=== PATIENT | male | born 1995 | race Hispanic/Latino ===

== ENCOUNTER 2017-10-23 15:38 | Emergency (ER) | payer OTHER ==
[~2017-10-23] VITALS: Ht 172.7 cm; Wt 67.1 kg
[2017-10-23] MEDS ORDERED: ACAMPROSATE CA333 MG PO (16:49)
[2017-10-23] MEDS ORDERED: BUPROPION XL150 MG PO (16:49)
[2017-10-23] MEDS ORDERED: GLIPIZIDE XL10 MG PO (16:50)
[2017-10-23] MEDS ORDERED: METFORMIN HCL1000 MG PO (16:51)
[2017-10-23] MEDS ORDERED: LOPERAMIDE2 M1 PO (16:51)
[2017-10-23 17:17] LABS: HEMATOCRIT 45.5 % (38.0-50.0); HEMOGLOBIN 16.3 G/DL (12.5-16.6); MCH 30.5 PG (29.0-34.0); MCHC 35.8 G/DL (30.0-36.0); PLATELET COUNT 283 K/uL (156-360); RBC DIS.WIDTH-CV 12.1 % (11.8-14.6); RBC DIS.WIDTH-SD 37.5 % (39-53); RED BLOOD COUNT 5.35 M/uL (4.00-5.50); WHITE BLOOD COUNT 13.1 K/uL (4.1-10.2)
[2017-10-23 17:21] LABS: CARBON DIOXIDE (BICARBONATE) 26.8 MEQ/L (20-31)
[2017-10-23 17:33] LABS: ALBUMIN 4.9 g/dL (3.2-4.8); CHLORIDE 98 mEq/L (99-109); POTASSIUM 4.3 mEq/L (3.7-5.4); SODIUM 136 mEq/L (136-147)
[2017-10-23 17:34] LABS: MAGNESIUM 2.1 mg/dL (1.3-2.7)
[2017-10-23 17:36] LABS: GLUCOSE 232 mg/dL (70-99); TOTAL PROTEIN 8.1 g/dL (6.4-8.3)
[2017-10-23 17:37] LABS: TOTAL BILIRUBIN 1.2 mg/dL (0.0-1.0)
[2017-10-23 17:38] LABS: SERUM ETHYL ALCOHOL < 10 mg/dL
[2017-10-23 17:39] LABS: ALKALINE PHOSPHATASE 112 IU/L (3-129); CREATININE 0.8 mg/dL (0.6-1.3); GFR ESTIMATE (CALCULATED) > 59 mL/min/ (58.99-99999); PHOSPHORUS 3.5 mg/dL (2.5-4.9)
[2017-10-23 17:40] LABS: UREA NITROGEN (BUN) 14 mg/dL (9-23)
[2017-10-23 17:41] LABS: AST (GOT) 23 IU/L (2-34); TROP-I INTERPRETATION NEGATIVE; TROPONIN-I < 0.01 ng/mL (0.0-0.30)
[2017-10-23 17:42] LABS: ALT (GPT) 21 IU/L (3-49)
[2017-10-23 17:43] LABS: LIPASE 24 U/L (1.0-51.0)
[2017-10-23 18:33] LABS: AMPHETAMINE NEGATIVE (500 ng/mL); BARBITURATES NEGATIVE (200 ng/mL); BENZODIAZEPINES NEGATIVE (150 ng/mL); BUPRENORPHINE NEGATIVE (10 ng/mL); COCAINE NEGATIVE (150 ng/mL); METHADONE NEGATIVE (200 ng/mL); METHAMPHETAMINE NEGATIVE (500 ng/mL); OPIATES (MORPHINE) NEGATIVE (100 ng/mL); OXYCODONE NEGATIVE (100 ng/mL); PHENCYCLIDINE NEGATIVE (25 ng/mL); PROPOXYPHENE NEGATIVE (300 ng/mL); THC CANNABINOIDS NEGATIVE (50 ng/mL); TRICYCLIC ANTIDEPRESSANTS NEGATIVE (300 ng/mL)
[2017-10-23] MEDS ORDERED: LIBRIUM25 MG PO (18:54)
[2017-10-23 19:41] VITALS: BP 132/74
== END 2017-10-23 19:43 | disposition home or self-care (01) ==
LOC: EME 15:38
PROVIDERS: Emergency Medicine
DX: F10.10 Alcohol abuse, uncomplicated (principal); E11.65 Type 2 diabetes mellitus with hyperglycemia; Z79.84 Long term (current) use of oral hypoglycemic drugs; F17.200 Nicotine dependence, unspecified, uncomplicated
CPT/HCPCS: 80053; 81003; 82803; 83605; 83690; 83735; 83930; 84100; 84484; 85027; 93005; 99281; 99285; G0480; J7030

== ENCOUNTER 2017-11-01 13:29 | Emergency (ER) | payer OTHER ==
[~2017-11-01] VITALS: Ht 177.8 cm; Wt 67.5 kg
[~2017-11-01 13:29] MED LIST: ACAMPROSATE CA333 MG PO; BUPROPION XL150 MG PO; GLIPIZIDE XL10 MG PO; LIBRIUM25 MG PO; LOPERAMIDE2 M1 PO; METFORMIN HCL1000 MG PO
[2017-11-01 14:43] LABS: CHLORIDE 102 mEq/L (99-109); POTASSIUM 4.4 mEq/L (3.7-5.4); SODIUM 137 mEq/L (136-147)
[2017-11-01 14:44] LABS: GLUCOSE 294 mg/dL (70-99)
[2017-11-01 14:48] LABS: CREATININE 0.9 mg/dL (0.6-1.3); GFR ESTIMATE (CALCULATED) > 59 mL/min/ (58.99-99999)
[2017-11-01 14:49] LABS: UREA NITROGEN (BUN) 12 mg/dL (9-23)
[2017-11-01 15:14] LABS: HEMATOCRIT 42.2 % (38.0-50.0); HEMOGLOBIN 15.3 G/DL (12.5-16.6); MCHC 36.3 G/DL (30.0-36.0); MCV 85.6 FL (86-99); PLATELET COUNT 258 K/uL (156-360); RBC DIS.WIDTH-CV 12.2 % (11.8-14.6); RBC DIS.WIDTH-SD 38.1 % (39-53); RED BLOOD COUNT 4.93 M/uL (4.00-5.50); WHITE BLOOD COUNT 9.8 K/uL (4.1-10.2)
[2017-11-01 15:27] LABS: CARBON DIOXIDE (BICARBONATE) 24.3 MEQ/L (20-31)
[2017-11-01 15:29] LABS: SERUM ETHYL ALCOHOL 72 mg/dL
[2017-11-01 15:40] LABS: APPEARANCE CLEAR ((CLEAR)); BILIRUBIN NEGATIVE; BLOOD NEGATIVE; COLOR STRAW ((YELLOW)); GLUCOSE (STRIP) >=500; KETONES 5; LEUKOCYTES TRACE; NITRITE NEGATIVE; PROTEIN (STRIP) NEGATIVE; SPECIFIC GRAVITY 1.016 (1.000-1.030); UROBILINOGEN 0.2 MG/DL (0.2-1.0)
[2017-11-01 15:45] LABS: BACTERIA NONE SEEN /HPF; EPITHELIAL CELLS RARE /HPF; MUCUS NONE SEEN /LPF; RED BLOOD CELLS 0-5 /HPF (0-5); UCUL ADDED? NO; WHITE BLOOD CELLS 0-5 /HPF (0-5)
[2017-11-01 16:56] VITALS: BP 116/78
== END 2017-11-01 16:56 | disposition home or self-care (01) ==
LOC: EME 13:29
PROVIDERS: Emergency Medicine
DX: F10.129 Alcohol abuse with intoxication, unspecified (principal); Y90.3 Blood alcohol level of 60-79 mg/100 ml; E11.9 Type 2 diabetes mellitus without complications; Z79.84 Long term (current) use of oral hypoglycemic drugs; F17.200 Nicotine dependence, unspecified, uncomplicated
CPT/HCPCS: 80048; 81003; 82803; 82948; 85027; 99281; 99284; G0480